=== PATIENT | male | born 1960 | race Caucasian/White ===

== ENCOUNTER 2017-05-25 15:24 | Emergency (ER) | payer OTHER ==
[~2017-05-25] VITALS: Ht 188 cm; Wt 104.9 kg
[~2017-05-25 15:24] MED LIST: ASPIRIN BUFFER325 MG PO; Aspirin E.C. PO; CARVEDILOL; CEPHALEXIN500 MG; CINNAMON PLUS1 EACH PO; Cardizem CD,Cartia X PO; Coreg PO; Coumadin,Jantoven PO; ENDOCET 5-3251 EACH; GLIPIZIDE ER2.5 MG PO; GLUCOPHAGE1000 MG PO; GLUCOPHAGE500 MG PO; Glucophage PO; LISINOPRIL; Lipitor PO; Lovenox SC; METFORMIN HCL1000 MG PO; MOTRIN800 MG PO; Mobic PO; NAPROXEN500 MG PO; NEXIUM40 MG PO; PERCOCET 5/31 TABLET PO; Percocet 5/325,Endoc PO; Pyridoxine,Vitamin B PO; VITAMIN B-6100 MG PO; Vitamin D PO; Vitamin-E PO; Zestoretic,Prinzide PO; [UNRECOGNIZED DRUG - OTHER]
[2017-05-25 17:52] LABS: HEMATOCRIT 38.4 % (38.0-50.0); MCH 29.5 PG (29.0-34.0); MCHC 34.6 G/DL (30.0-36.0); MCV 85.1 FL (86-99); MEAN PLAT.VOLUME 9.2 uM^3 (9.0-12.4); PLATELET COUNT 218 K/uL (156-360); RBC DIS.WIDTH-CV 13.9 % (11.8-14.6); RBC DIS.WIDTH-SD 43.1 % (39-53); RED BLOOD COUNT 4.51 M/uL (4.00-5.50); WHITE BLOOD COUNT 8.8 K/uL (4.1-10.2)
[2017-05-25 18:01] LABS: CHLORIDE 105 mEq/L (99-109); POTASSIUM 3.8 mEq/L (3.7-5.4); SODIUM 141 mEq/L (136-147)
[2017-05-25 18:02] LABS: PROTHROMBIN TIME 11.4 SEC (10.2-12.9)
[2017-05-25 18:03] LABS: GLUCOSE 103 mg/dL (70-99)
[2017-05-25 18:04] LABS: ANION GAP 12 MEQ/L (2-14)
[2017-05-25 18:05] LABS: PTT 28.9 SEC (25-37)
[2017-05-25 18:07] LABS: GFR ESTIMATE (CALCULATED) > 59 mL/min/ (58.99-99999)
[2017-05-25 18:08] LABS: UREA NITROGEN (BUN) 30 mg/dL (9-23)
[2017-05-25] MEDS ORDERED: XARELTO1 EACH PO (18:19)
[2017-05-25 19:02] VITALS: BP 105/78
== END 2017-05-25 19:03 | disposition home or self-care (01) ==
LOC: EME 15:24
PROVIDERS: Physician Assistant Medical
DX: I82.402 Acute embolism and thrombosis of unspecified deep veins of left lower extremity (principal); I10 Essential (primary) hypertension; E78.5 Hyperlipidemia, unspecified; E11.9 Type 2 diabetes mellitus without complications; Z79.84 Long term (current) use of oral hypoglycemic drugs; Z86.718 Personal history of other venous thrombosis and embolism; Z79.82 Long term (current) use of aspirin
CPT/HCPCS: 80048; 85027; 85610; 85730; 99281; 99283

== ENCOUNTER 2017-06-21 16:55 | Emergency (ER) | payer OTHER ==
[~2017-06-21] VITALS: Ht 188 cm; Wt 105.7 kg
[~2017-06-21 16:55] MED LIST changes: +XARELTO1 EACH PO
[2017-06-21 17:25] LABS: MCHC 34.1 G/DL (30.0-36.0); MCV 85.1 FL (86-99); PLATELET COUNT 232 K/uL (156-360); RBC DIS.WIDTH-CV 13.6 % (11.8-14.6); RED BLOOD COUNT 4.82 M/uL (4.00-5.50); WHITE BLOOD COUNT 8.2 K/uL (4.1-10.2)
[2017-06-21 17:49] LABS: CHLORIDE 102 MEQ/L (99-109); POTASSIUM 4.3 MEQ/L (3.7-5.4); SODIUM 141 MEQ/L (136-147)
[2017-06-21 17:54] LABS: CREATININE 1.4 MG/DL (0.6-1.3); GFR ESTIMATE (CALCULATED) 56 mL/min/ (58.99-99999); GLUCOSE 90 mg/dL (70-99); UREA NITROGEN (BUN) 26 mg/dL (9-23)
[2017-06-21 17:57] LABS: TROP-I INTERPRETATION NEGATIVE; TROPONIN-I < 0.01 ng/mL (0.0-0.30)
[2017-06-21 20:47] LABS: TROP-I INTERPRETATION NEGATIVE; TROPONIN-I < 0.01 ng/mL (0.0-0.30)
[2017-06-21 21:30] VITALS: BP 123/73
== END 2017-06-21 21:31 | disposition home or self-care (01) ==
LOC: EME 16:55
PROVIDERS: Physician Assistant Medical
DX: R07.9 Chest pain, unspecified (principal); E11.9 Type 2 diabetes mellitus without complications; E78.5 Hyperlipidemia, unspecified; I10 Essential (primary) hypertension; K21.9 Gastro-esophageal reflux disease without esophagitis; Z86.711 Personal history of pulmonary embolism; Z86.718 Personal history of other venous thrombosis and embolism; Z79.01 Long term (current) use of anticoagulants; Z79.82 Long term (current) use of aspirin; Z79.84 Long term (current) use of oral hypoglycemic drugs
CPT/HCPCS: 71046; 71275; 80048; 84484; 85027; 93005; 99281; 99284; J7030